=== PATIENT | male | born 1975 | race Caucasian/White ===

== ENCOUNTER → 2025-09-04 | Emergency (ER) | payer OTHER ==
[~2025-09-04] MED LIST: Aspirin Chewable 81 MG TAB ONE; Ketorolac Tromethamine 30 MG (1 mL) VIAL ONE; Orphenadrine Citrate 60 MG/2 ML VIAL ONE
[2025-09-04 16:05] LABS: #Basophils 0.1 thou/uL (0.0-0.2); #Eosinophils 0.1 thou/uL (0.0-0.7); #Lymphocytes 2.5 thou/uL (1.20-3.40); #Monocytes 0.6 thou/uL (0.11-0.59); #Neutrophils 3.1 thou/uL (1.40-6.50); %Basophils 1.7 % (0.0-1.0); %Eosinophils 1.7 % (0.0-10.0); %Lymphocytes 39.0 % (21.0-51.0); %Monocytes 9.8 % (0.0-10.0); %Neutrophils 47.9 % (42.0-75.0); Hematocrit 48.0 % (42.0-52.0); Hemoglobin 15.9 g/dL (14.0-18.0); Mean Corpuscular Hemoglobin 29.1 pg (27.0-31.0); Mean Corpuscular Volume 87.7 fl (78.0-98.0); Platelet Count 274 10x3/uL (130-400); Red Blood Cell (RBC) Count 5.47 mill/uL (4.70-6.10); White Blood Cell (WBC) Count 6.5 10x3/uL (4.8-10.8)
[2025-09-04 16:17] LABS: ALT (SGPT) 18 U/L (Less than 45); AST (SGOT) 20 U/L (11-34); Albumin 4.2 g/dL (3.1-4.5); Alkaline Phosphatase 45 U/L (40-110); Anion Gap 15 mmol/L (10-20); BUN (Urea Nitrogen) 16 mg/dL (8.4-25.7); Bilirubin, Total 0.3 mg/dL (0.3-1.2); CK (CPK) 92 U/L (30-200); Calc. Creatinine Clearance 0 mL/min (70-130); Calcium 8.9 mg/dL (7.8-10.44); Carbon Dioxide 24 mmol/L (22-29); Chloride 107 mmol/L (98-107); Globulin 2.8 g/dL (2.4-3.5); Glucose 88 mg/dL (70-105); Magnesium 2.2 mg/dL (1.6-2.6); Potassium 3.8 mmol/L (3.5-5.1); Sodium 142 mmol/L (136-145); Troponin I 0.012 ng/mL (< 0.028)
== END ==
LOC: BURERS 15:03
DX: S29.011A Strain of muscle and tendon of front wall of thorax, initial encounter (principal); K21.00 Gastro-esophageal reflux disease with esophagitis, without bleeding; M19.012 Primary osteoarthritis, left shoulder; X50.9XXA Other and unspecified overexertion or strenuous movements or postures, initial encounter
CPT/HCPCS: 71045; 80053; 82550; 83735; 83880; 84484; 85025; 85379; 93005; 96374; 96375; J1885; J2360; J2919